=== PATIENT | male | born 1965 | race Caucasian/White ===

== ENCOUNTER 2017-12-26 05:51 | Outpatient (CLI) | payer BC ==
[~2017-12-26] VITALS: Ht 188 cm; Wt 133.8 kg
[~2017-12-26 05:51] MED LIST: HYDR2TAB6 PO; METF500T8 PO; ONDA4TAB8 SL; PRD20T PO; PROP40TA5 PO
[2017-12-26] MEDS ORDERED: GLIM4TAB PO (12:52)
[2017-12-26] MEDS ORDERED: PROP60TA17 PO (12:52)
[2017-12-26] MEDS ORDERED: DAPA10TA PO (12:52)
[2017-12-26] MEDS ORDERED: DULA0.75 SQ (12:52)
[2017-12-26] MEDS ORDERED: ATOR10TA66 PO (12:52)
== END 2017-12-26 12:53 ==
LOC: PREOP 05:51
PROVIDERS: ATTEND Surgery
DX: Z01.818 Encounter for other preprocedural examination (principal); Z12.11 Encounter for screening for malignant neoplasm of colon

== ENCOUNTER 2018-01-02 09:03 | Day surgery (SDC) | payer BC ==
[~2018-01-02] VITALS: Ht 188 cm; Wt 133.8 kg
[~2018-01-02 09:03] MED LIST changes: +ATOR10TA66 PO; +DAPA10TA PO; +DULA0.75 SQ; +GLIM4TAB PO; +PROP60TA17 PO
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
[2018-01-02] MEDS ORDERED: NS IV 500 ML 500 ML IV ONE (10:00)
[2018-01-02] MEDS ORDERED: NS IV 500 ML 500 ML ONE (10:02)
[2018-01-02 10:15] VITALS: BP 115/102
--- NOTE | 2018-01-02 10:21 | History & Physicial ---
History of Present Illness History of Present Illness Reason for visit/HPI to undergo screening colonoscopy. Date of Admission 01/02/18 Date Seen by Provider: Jan 02, 2018 Time Seen by Provider: 10:19 I consulted on this patient on 01/02/18 10:18 Attending Physician Gerald Melendez MD Admitting Physician Kendy Akins DO Consult Allergies and Home Medications Allergies Coded Allergies: hydrocodone (Unverified Allergy, Unknown, NAUSEA, 05/02/15) Home Medications Atorvastatin Calcium 10 Mg Tablet, 10 MG PO HS, (Reported) Dapagliflozin Propanediol 10 Mg Tablet, 10 MG PO HS, (Reported) Dulaglutide 0.75 Mg/0.5 Ml Pen.injctr, 0.75 MG SQ WEEK, (Reported) Glimepiride 4 Mg Tablet, 4 MG PO HS, (Reported) Propranolol HCl 60 Mg Tablet, 60 MG PO HS, (Reported) Patient Home Medication List Home Medication List Reviewed: Yes Past Tzevgki-Cpacrz-Fvpcjk Hx Patient Social History Marrital Status: Employed/Student: employed Alcohol Beverage of Choice: Beer Former Smoker, Quit: Dec 26, 1994 Type Used: Smokeless Tobacco Recent Foreign Travel: No Contact w/other who traveled: No Recent Hopitalizations: No Immunizations Up To Date Tetanus Booster (TDap): Unknown Date of Influenza Vaccine: Jun 27, 2017 Seasonal Allergies Seasonal Allergies: No Surgeries Yes Orthopedic Respiratory No Cardiovascular Yes High Cholesterol Neurological No Reproductive System Hx Reproductive Disorders: No Gastrointestinal Yes Gastroesophageal Reflux Musculoskeletal No Endocrine History of Endocrine Disorders: Yes Endocrine Disorders: Diabetes, Non-Insulin dep Integumentary History of Skin or Integumenta: No Blood Transfusions Adverse Reaction to a Blood Tr: No Constitutional: no symptoms reported EENTM: no symptoms reported Respiratory: no symptoms reported Cardiovascular: no symptoms reported Gastrointestinal: no symptoms reported Genitourinary: no symptoms reported Musculoskeletal: no symptoms reported Skin: no symptoms reported Psychiatric/Neurological: No Symptoms Reported Physical Exam Vital Signs Capillary Refill : General Appearance: No Apparent Distress Neck: Normal Inspection Respiratory: Lungs Clear Gastrointestinal: Non Tender, Soft Rectal: Deferred Neurologic/Psychiatric: Alert, Oriented x3 Skin: Warm/Dry Assessment/Plan Assessment and Plan gentleman here, to undergo screening colonoscopy. Discussed in detail Problems: Admission Diagnosis Admission Status: Other (Outpt Proc) GERALD MELENDEZ MD Jan 02, 2018 10:21 am
--- NOTE | 2018-01-02 10:21 | Conscious Sedation/ASA ---
Conscious Sedation Pre-Proced Time Reviewed: 10:21 ASA Class: 2 Airway Mallampati Classification: ([place] ira appropriate class) I. II. III, IV Lungs Heart ASA score ASA 1: a normal healthy patient ASA 2: a patient with a mild systemic disease (mid diabetes, controlled hypertension, obesity ASA 3: a patient with a severe systemic disease that limits activity (angina , COPD, prior Myocardial infarction) ASA 4: a patient with an incapacitating disease that is a constant threat to life (CHF, renal failure) ASA 5: a moribund patient not expected to survive 24 hrs. (ruptured aneurysm) ASA 6: a declared brain patient whose organs are being harvested. For emergent operations, add the letter E after the classification Grade 1 Sedation Plan: Discussed options with patient/fam Note The patient is an appropriate candidate to undergo the planned procedure, sedation, and anesthesia. The patient immediately re-assessed prior to indication. GERALD LEAL MD Jan 02, 2018 10:21 am
[2018-01-02] MEDS ORDERED: fentaNYL INJECTION 100 MCG/2 ML AMP ONE ×2 (11:35→11:36)
[2018-01-02] MEDS ORDERED: MIDAZOLAM 2 MG/2 ML (VERSED) VIAL ONE ×3 (11:36)
[2018-01-02] MEDS: fentaNYL INJECTION 100 MCG/2 ML AMP IVP PRN ×3 (11:41→11:52)
[2018-01-02] MEDS: MIDAZOLAM 2 MG/2 ML (VERSED) VIAL IVP PRN ×3 (11:42→11:48)
--- NOTE | 2018-01-02 12:09 | Endo Procedure Record ---
Endo Procedure Report Date of Procedure Last Colonoscopy: No Jan 02, 2018 Surgeon (s) GERALD LEAL MD Post Procedure/Op Diagnosis Very few sigmoid diverticulae Procedure Performed Colonoscopy to cecum Description of Procedure Anesthesia Type: Conscious Sedation Specimen(s) collected/removed Indication for the procedure: This gentleman came in for a screening colonoscopy. He reported a family history of polyps. Informed consent was obtained after reviewing the procedure in detail Description of the procedure: He was placed in left lateral decubitus position and his vital signs were monitored. Conscious sedation was achieved using Versed and fentanyl. Digital rectal examination was unremarkable. The prostate gland appeared to be smooth. The flexible colonoscope was then introduced into the rectum and advanced all the way up to the cecum The quality of bowel preparation was excellent. The scope was then withdrawn slowly and the mucosa examined in a systematic fashion. Finding: Very few sigmoid diverticula. He tolerated the procedure well and was taken back to the nursing area in a stable condition. Impression: Screening colonoscopy. No polyps. Positive family history. Recommend repeating in 5 years Description of the Procedure none Copies To: JANETTE GALEANO XAVIER M MD Jan 02, 2018 12:09 pm
--- NOTE | 2018-01-02 12:11 | Discharge Inst-Simple/Standard ---
Discharge Inst-Standard Discharge Medications New, Converted or Re-Newed RX: Other Patient Instructions/Follow Up Plan of Care/Instructions/FU: Repeat colonoscopy in 5 years Activity as Tolerated: Yes Discharge Diet: ADA Diet GERALD LEAL MD Jan 02, 2018 12:10 pm
[2018-01-02 12:40] VITALS: BP 96/56
[2018-01-02 13:00] VITALS: BP 107/89
[2018-01-02 13:02] VITALS: BP 107/89
== END 2018-01-02 13:03 | disposition home or self-care (01) ==
LOC: ENDO 09:03
PROVIDERS: ATTEND Surgery
DX: Z12.11 Encounter for screening for malignant neoplasm of colon (principal); K57.30 Diverticulosis of large intestine without perforation or abscess without bleeding; Z83.71 Family history of colonic polyps; E78.00 Pure hypercholesterolemia, unspecified; E11.9 Type 2 diabetes mellitus without complications; K21.9 Gastro-esophageal reflux disease without esophagitis; Z79.84 Long term (current) use of oral hypoglycemic drugs; Z79.899 Other long term (current) drug therapy
CPT/HCPCS: 82962

== ENCOUNTER → 2018-06-19 | Outpatient (CLI) | payer BC ==
[~2018-06-19] MED LIST changes: +ACET325T49 PO; +APIX5TAB PO; +CATHETER FLUSH 10 ML SYR IV PRN; +FAMO20TA5 PO; +IOHEXOL 350 MG/ML 150 ML (OMNIPAQUE 350) VIAL IV ONE; +METF-399 PO; +NS 250 ML (IVPB) BAG IV ONE
[2018-06-19 17:23] LABS: ALANINE AMINOTRANSFERASE 32 U/L (0-55); ALBUMIN 4.6 GM/DL (3.2-4.5); ALKALINE PHOSPHATASE 69 U/L (40-136); BILIRUBIN,TOTAL 0.6 MG/DL (0.1-1.0); BUN/CREATININE RATIO 13; CALCIUM 10.1 MG/DL (8.5-10.1); CARBON DIOXIDE 25 MMOL/L (21-32); CHLORIDE 105 MMOL/L (98-107); CREATINE KINASE 108 U/L (30-200); CREATININE SERUM 1.07 MG/DL (0.60-1.30); GFR ESTIMATED > 60; GLUCOSE 183 MG/DL (70-105); POTASSIUM 4.4 MMOL/L (3.6-5.0); SODIUM 140 MMOL/L (135-145); TOTAL PROTEIN 8.1 GM/DL (6.4-8.2)
--- NOTE | 2018-06-19 18:11 | Diagnostic Imaging Report ---
PROCEDURE: CT angiography of the chest with contrast. TECHNIQUE: Multiple contiguous axial images were obtained through the chest after uneventful bolus administration of intravenous contrast. 2D reconstructed CTA MIP acquisitions were also performed. INDICATION: Shortness of air on exertion as well as anterior chest pressure. COMPARISON: Comparison is made with prior CT chest from 05/02/2015. FINDINGS: Evaluation of the pulmonary arterial system does show numerous filling defects within bilateral central, lobar and segmental pulmonary arterial branches extending into upper and bilateral lower lobes. No saddle embolus is identified. The thoracic aorta is normal caliber. No dissection is seen. No pericardial or pleural fluid is identified. Parenchymal evaluation does show minimal patchy airspace infiltrate in the right upper lobe. Otherwise, the lungs are clear. Upper abdomen is unremarkable. IMPRESSION: Findings consistent with moderate bilateral pulmonary emboli. The results were called to Dr. Akins prior to this dictation. Dictated by: Dictated on workstation # [id number]
== END ==
LOC: RAD 16:48
PROVIDERS: ATTEND Nurse Practitioner Family
DX: R07.89 Other chest pain (principal); E11.9 Type 2 diabetes mellitus without complications; R06.02 Shortness of breath
CPT/HCPCS: 36415; 71275; 80053; 82550; 83036; 84484; 93005

== ENCOUNTER 2018-06-29 18:24 | Observation (INO) | payer BC ==
[~2018-06-29] VITALS: Ht 188 cm; Wt 129.7 kg
[2018-06-29] VITALS (7 sets, daily range): BP systolic 112–131; BP diastolic 68–87
[~2018-06-29 18:24] MED LIST changes: -CATHETER FLUSH 10 ML SYR IV PRN; -IOHEXOL 350 MG/ML 150 ML (OMNIPAQUE 350) VIAL IV ONE; -NS 250 ML (IVPB) BAG IV ONE
[2018-06-29 18:43] LABS: BASOPHILS # (AUTO) 0.1 10^3/uL (0.0-0.1); BASOPHILS % (AUTO) 1 % (0-10); EOSINOPHILS # (AUTO) 0.2 10^3/uL (0.0-0.3); EOSINOPHILS % (AUTO) 2 % (0-10); HEMATOCRIT 44 % (40-54); HEMOGLOBIN 16.2 G/DL (13.3-17.7); LYMPHOCYTES # (AUTO) 3.3 X 10^3 (1.0-4.0); LYMPHOCYTES % (AUTO) 39 % (12-44); MEAN CORPUSCULAR HEMOGLOBIN 33 PG (25-34); MEAN CORPUSCULAR HGB CONC 37 G/DL (32-36); MEAN CORPUSCULAR VOLUME 88 FL (80-99); MEAN PLATELET VOLUME 10.5 FL (7.4-10.4); MONOCYTES # (AUTO) 0.9 X 10^3 (0.0-1.0); MONOCYTES % (AUTO) 11 % (0-12); NEUTROPHILS # (AUTO) 4.1 X 10^3 (1.8-7.8); NEUTROPHILS % (AUTO) 48 % (42-75); PLATELET COUNT 257 10^3/uL (130-400); RED BLOOD COUNT 4.99 10^6/uL (4.35-5.85); RED CELL DISTRIBUTION WIDTH 12.2 % (10.0-14.5); WHITE BLOOD COUNT 8.6 10^3/uL (4.3-11.0)
[2018-06-29] MEDS ORDERED: LORazepam INJ 2 MG/ML (ATIVAN) VIAL IVP ONE (18:45)
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
[2018-06-29 18:53] LABS: INR 1.1 (0.8-1.4); PROTHROMBIN TIME PATIENT 13.8 SEC (12.2-14.7)
[2018-06-29 19:00] LABS: ALANINE AMINOTRANSFERASE 29 U/L (0-55); ALBUMIN 4.7 GM/DL (3.2-4.5); ALKALINE PHOSPHATASE 57 U/L (40-136); BILIRUBIN,TOTAL 0.5 MG/DL (0.1-1.0); BUN/CREATININE RATIO 13; CALCIUM 10.4 MG/DL (8.5-10.1); CARBON DIOXIDE 21 MMOL/L (21-32); CHLORIDE 104 MMOL/L (98-107); GFR ESTIMATED > 60; GLUCOSE 112 MG/DL (70-105); MAGNESIUM 2.4 MG/DL (1.8-2.4); POTASSIUM 3.6 MMOL/L (3.6-5.0); SODIUM 137 MMOL/L (135-145); TOTAL PROTEIN 8.4 GM/DL (6.4-8.2)
[2018-06-29 19:06] LABS: MYOGLOBIN SERUM 35.1 NG/ML (10.0-92.0)
[2018-06-29] MEDS ORDERED: ASPIRIN 81 MG CHEW (CHILDREN'S ASA) PO ONE (19:45)
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
--- NOTE | 2018-06-29 20:06 | Diagnostic Imaging Report ---
EXAMINATION: Chest radiograph, portable AP view. DATE: June 29, 2018 at 1858 hours. INDICATION: 52-year-old male, chest pain. COMPARISON: June 06, 2016. FINDINGS: Stable overall appearance of the cardiomediastinal silhouette. There is a convexity to the right of midline at the lower aspect of the trachea which is radiographically unchanged. Correlating with prior CT chest of June 19, 2018, this most likely reflects a prominent azygous vein. There is no identified pneumothorax. There is no large pleural effusion. There is no identified focal airspace consolidation. IMPRESSION: 1. No radiographically apparent acute cardiopulmonary abnormality. 2. Prominent convexity to the right of midline at the level of the lower trachea likely reflects a prominent azygous vein correlating with recent prior CT. Dictated by: Dictated on workstation # [id number]
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
[2018-06-30] VITALS (10 sets, daily range): BP systolic 104–128; BP diastolic 71–86
[2018-06-30 06:11] LABS: CHOLESTEROL 122 MG/DL (< 200); HDL CHOLESTEROL 33 MG/DL (40-60); TRIGLYCERIDES 145 MG/DL (<150); VLDL CHOLESTEROL 29 MG/DL (5-40)
[2018-06-30] MEDS: CATHETER FLUSH 10 ML SYR IV PRN ×2 (07:29→08:54)
[2018-06-30] MEDS ORDERED: REGADENOSON 0.4 MG/5 ML SYR (LEXISCAN) IV ONE ×2 (08:04→09:00)
[2018-06-30] MEDS ORDERED: APIXABAN 5 MG (ELIQUIS) TABLET PO SCH (09:00)
[2018-06-30] MEDS ORDERED: ASPIRIN E.C. 81 MG (ECOTRIN) TAB PO SCH (09:00)
--- NOTE | 2018-06-30 09:04 | Consultation-Cardiology ---
HPI-Cardiology Cardiology Consultation: Date of Consultation 06/30/18 Date of Admission Attending Physician Kendy Akins DO Admitting Physician Kendy Akins DO Consulting Physician Bennie ANDRES MD HPI: Time Seen by a Provider: 09:04 Chief Complaint: Chest pain, shortness of breath This is a 52-year-old gentleman who had bilateral pulmonary emboli around 10 days ago. At that point in time he had chest pain. Patient has on Eliquis and has been compliant. He presents again with episode of chest heaviness, shortness of breath. Patient also has history of diabetes and family history of premature CAD. Patient denies any palpitations, syncope or near syncope. Chest discomfort is atypical in nature. Review of Systems-Cardiology Review of Systems Constitutional: As described under HPI; No As described under HPI, No no symptoms reported, No chills, No fever, No lightheadedness Eyes: No As described under HPI, No no symptoms reported, No blindness, No blurred vision, No contact lenses, No drainage, No decreased acuity, No foreign body sensation, No pain, No vision change Ears/Nose/Throat: No As described under HPI, No no symptoms reported, No chronic hearing loss, No ear discharge, No ear pain, No nasal drainage, No ulcerations Respiratory: No no symptoms reported; As described under HPI; No As described under HPI, No cough, No orthopnea; shortness of breath; No SOB with excertion Cardiovascular: No no symptoms reported; As described under HPI; No As described under HPI; chest pain; No edema, No irregular heart rate, No lightheadedness, No palpitations Gastrointestinal: No no symptoms reported, No As described under HPI, No abdomen distended, No abdominal pain, No blood streaked bowels, No constipation , No diarrhea, No nausea, No vomiting, No stool coloration changes Genitourinary: No As described under HPI, No burning, No dysuria, No discharge , No frequency, No flank pain, No hematuria, No urgency Skin: No rash, No skin related problems, No ulcerations Psychiatric/Neurological: No anxiety, No depression, No seizure, No focal weakness, No syncope Hematologic: No bleeding abnormalities JCN-Ibvkld-Rcesks Hx Patient Social History Alcohol Use: Denies Use Recreational Drug Use: No Smoking Status: Former Smoker Type Used: Cigarettes 2nd Hand Smoke Exposure: No Recent Foreign Travel: No Recent Infectious Disease Expo: No Hospitalization with Isolation: Denies Physical Abuse Screen: No Sexual Abuse: No Immunizations Up To Date Tetanus Booster (TDap): Unknown Date of Influenza Vaccine: Jun 29, 2018 Past Medical History PMH As described under Assessment. Family Medical History Family History: Diabetes mellitus 19 FATHER G8 SISTER Allergies and Home Medications Allergies Coded Allergies: hydrocodone (Verified Allergy, Unknown, NAUSEA, 01/02/18) Home Medications Acetaminophen 325 Mg Tablet, 650 MG PO Q6H PRN for PAIN-MILD, (Reported) Apixaban 5 Mg Tablet, PO UD, (Reported) TAKE 2 TABS TWICE DAILY THROUGH Tuesday06-30-18 THEN START 1 TAB BID ON Tuesday07-01-18 (DID NOT TAKE TUESDAY NIGHT DOSE) Cetirizine HCl 10 Mg Tablet, 10 MG PO HS, (Reported) Dapagliflozin Propanediol 10 Mg Tablet, 10 MG PO DAILY, (Reported) Famotidine 20 Mg Tablet, 20 MG PO BID, (Reported) Glimepiride 4 Mg Tablet, 4 MG PO BID, (Reported) Metformin HCl 1,000 Mg Tablet, 1,000 MG PO BID, (Reported) Propranolol HCl 60 Mg Tablet, 60 MG PO DAILY, (Reported) Triamcinolone Acet 15 Gm Oint, TOP BID, (Reported) Patient Home Medication List Home Medication List Reviewed: Yes Physical Exam-Cardiology Physical Exam Vital Signs/I&O 07/01/18 00:00 Intake Total 1125 ml Balance 1125 ml Capillary Refill : Less Than 3 Seconds Constitutional: appears stated age, AAO x 3; No apparent distress; well- developed, well-nourished HEENT: PERRL; No normal ENT inspection, No TMs normal, No pharynx normal, No scleral icterus (R), No scleral icterus (L), No pale conjunctivae (R), No pale conjunctivae (L), No photophobia, No TM abnormal (R), No TM abnormal (L), No pharyngeal erythema, No tonsillar exudate, No other, No discharge, No EOMI; hearing is well preserved; No hard of hearing; oral hygience is good; No ulceration, No xanthelasmas are seen Neck: No carotid bruit; carotid pulses are 2 + bilaterally Respiratory: No accessory muscle use, No respiratory distress, No chest tender , No chest expansion is symmetric; chest is bilaterally symmetric; No lungs clear to percussion; lungs clear to auscultation; No crackles, No rhonchi, No rales, No stridor, No wheezing, No pleural rub, No other Cardiovascular: regular rate-rhythm; No irregularly irregular, No extra beats, No parasternal heave is noted, No JVD, No edema, No bradycardia, No tachycardia , No point of maximal impulse, No cardiac thrills are palpable; S1 and S2; No gallop/S3, No gallop/S4, No diastolic murmur, No systolic murmur, No friction rub, No click, No other Gastrointestinal: No tender, No soft, No round, No distended, No pulsatile mass , No organomegaly, No guarding, No rebound, No tenderness, No hernia, No mass, No audible bowel sounds, No abnormal bowel sounds, No abdominal bruits, No spleenomegaly, No other Rectal: deferred Extremities: No normal range of motion, No non-tender, No normal inspection, No pedal edema, No calf tenderness, No normal capillary refill, No pelvis stable , No calf tenderness, No inflammation, No pedal edema, No slow capillary refill , No swelling, No other, No abrasion, No clubbing, No cyanosis, No ecchymosis, No laceration, No no lower extremity edema bilateral, No significant edema, No tenderness, No wound Neurologic/Psychiatric: no motor/sensory deficits, alert, normal mood/affect, oriented x 3, power is 5/5 both on sides Skin: No normal color, No warm/dry, No cyanosis, No cool, No diaphoresis, No damp, No ecchymosis, No jaundice, No mottled, No pallor, No rash, No tattoos/ piercings, No ulcerations, No rash on exposed areas, No ulcerations on exposed areas, No other Data Review Labs ECG Impression ECG Initial ECG Rhythm: Normal Sinus Initial ECG Impression: Nonspecific Changes A/P-Cardiology Assessment/Admission Diagnosis Chest pain, shortness of breath, Recent pulmonary embolism, Diabetes Plan Continue Eliquis therapy for pulmonary embolism. Chest pain, shortness of breath, will request echocardiogram and nuclear stress test to rule out CAD. Patient has significant risk factors for CAD including diabetes and family history of premature CAD. Diabetes: Continue current medical therapy. Thank you for your consultation. Please call me if you have any questions. Dudley Andres MD, FACP, FACC, FSCAI, FHRS, CCDS Interventional Cardiology Cardiac Electrophysiology Vascular Medicine and Endovascular Interventions Clinical Quality Measures AMI/AHF: ASA po Prior to arrival: No DVT/VTE Risk/Contraindication: Risk Factor Score Per Nursin RFS Level Per Nursing on Admit: 4+=Very High Bennie ANDRES MD Jun 30, 2018 09:04
[2018-06-30] MEDS ORDERED: ATOR10TA66 PO (10:06)
[2018-06-30] MEDS ORDERED: APIX5TAB PO (10:06)
[2018-06-30] MEDS ORDERED: DAPA10TA PO (10:06)
[2018-06-30] MEDS ORDERED: FAMO20TA3 PO (10:06)
[2018-06-30] MEDS ORDERED: TR1O15 TOP (10:06)
[2018-06-30] MEDS ORDERED: ACET325T38 PO (10:30)
[2018-06-30] MEDS ORDERED: CETI10TA20 PO (10:30)
--- NOTE | 2018-06-30 12:25 | Cardiology Stress Test Report ---
Stress Test Report Type of NM Stress Test: Test Type: LEXISCAN 0.4MG/5ML Date of Procedure/Referring: Date of Procedure: Jun 30, 2018 PCP Kendy Akins DO Admitting Physician Kendy Akins DO Indications: Chest pain Baseline Heart Rate: 63 Baseline Blood Pressure: Blood Pressure Systolic: 128 Blood Pressure Diastolic: 85 Baseline EKG: Baseline EKG: sinus rhythm Summary & Conclusion: Summary: The patient was brought to the stress lab after informed consent was taken. Stress test was performed according to the Lexiscan protocol. 0.4 mg of IV Lexiscan was given. Low-grade exercise was performed. Baseline EKG showed sinus rhythm at 63 BPM. Initial blood pressure was 151/95 mmHg. Maximum heart rate was 96 bpm and blood pressure 119/90 mmHg. Patient did not have any chest pain, arrhythmias or ST segment changes during the stress test. 9.96 mCi of Myoview were given for rest imaging and 29.1 mCi of Myoview given for stress imaging. Transient ischemic dilatation score 1.11, EF 57 percent. Normal wall motion. Normal myocardial perfusion imaging during rest and stress. Conclusion: Pharmacological stress test was negative for ischemia. Normal LV function with no wall motion abnormalities. Normal myocardial perfusion imaging during rest and stress. Bennie JOSE MD Jun 30, 2018 12:25 pm
== END 2018-06-30 17:00 | disposition home or self-care (01) ==
LOC: EDUNIT# 18:24 → ER 18:28 → 4TH 20:27
PROVIDERS: ADMIT Family Medicine; ATTEND Family Medicine
DX: R07.9 Chest pain, unspecified (principal); E11.9 Type 2 diabetes mellitus without complications; R06.02 Shortness of breath; F41.9 Anxiety disorder, unspecified; Z86.711 Personal history of pulmonary embolism; Z82.49 Family history of ischemic heart disease and other diseases of the circulatory system; Z87.891 Personal history of nicotine dependence; Z79.899 Other long term (current) drug therapy; Z79.84 Long term (current) use of oral hypoglycemic drugs
CPT/HCPCS: 36415; 71045; 78452; 80053; 80061; 82962; 83735; 83874; 83880; 84484; 85025; 85610; 85730; 93005; 93017; 93041; 93306; G0378

== ENCOUNTER → 2019-11-26 | Outpatient (CLI) | payer BC ==
[~2019-11-26] MED LIST changes: +ACET325T38 PO; +CETI10TA21 PO; +FAMO20TA3 PO; -GLIM4TAB PO; +GLIM4TAB5 PO; +METF500T19 PO; -METF500T8 PO; +TR1O15 TOP
--- NOTE | 2019-11-26 11:46 | Diagnostic Imaging Report ---
INDICATION: Left shoulder pain. FINDINGS: Three views of the left shoulder show no fracture or dislocation. Joint spaces are well-maintained. IMPRESSION: Negative left shoulder. Dictated by: Dictated on workstation # [id number]
--- NOTE | 2019-11-26 11:50 | Diagnostic Imaging Report ---
INDICATION: Neck pain. EXAMINATION: Cervical spine. FINDINGS: AP and lateral views of the cervical spine show normal vertebral body height and alignment. The intervertebral disc spaces are well-maintained. There is no prevertebral soft tissue swelling. There are no fractures seen. IMPRESSION: Unremarkable cervical spine. Dictated by: Dictated on workstation # [id number]
--- NOTE | 2019-11-26 12:00 | Diagnostic Imaging Report ---
Left foot at 1132 hours. INDICATION: Foot pain. 3 views were obtained. There are no prior studies available for comparison. FINDINGS: Reportedly, there is clinical concern regarding an injury to the 3rd and 4th metatarsals. There is no fracture or acute bony abnormality appreciated. The Lisfranc joint seems well maintained. There is moderate degenerative disease of the phalanges. A prominent calcaneal spur is also seen. The lateral view does show soft tissue edema along the dorsum of the bases of the metatarsals. IMPRESSION: 1. There is soft tissue edema over the dorsum of the forefoot but there is no evidence for a fracture. 2. If clinical concern regarding an underlying abnormality persists and further imaging is desired, then CT would be recommended for further study. Dictated by: Dictated on workstation # [id number]
--- NOTE | 2019-11-26 13:51 | Diagnostic Imaging Report ---
INDICATION: Left foot pain. COMPARISON: 06/20/2018. TECHNIQUE: Duplex, mcdonough-scale and color-flow imaging of the left lower extremity venous system was performed. FINDINGS: The common femoral vein, superficial femoral vein, profunda femoris, and popliteal veins are normal. These vessels show normal compressibility, color flow, and Doppler augmentation. The deep calf veins, although not very well seen, demonstrate no distinct intraluminal thrombus. There is focal complex superficial fluid collection involving the dorsum of the foot that measures 3.1 x 0.7 x 2.6 cm. Internal debris and/or septations are noted. Color flow images show no evidence of internal vascularity. IMPRESSION: 1. No evidence of DVT of the left lower extremity. 2. Complex fluid collection involving the dorsum of the foot. Findings could be on the basis of focal abscess or hematoma. Seroma is also a consideration. Dictated by: Dictated on workstation # [id number]
== END ==
LOC: RAD 10:17
PROVIDERS: ATTEND Nurse Practitioner Family
DX: M79.672 Pain in left foot (principal); M54.12 Radiculopathy, cervical region; M79.89 Other specified soft tissue disorders; M25.512 Pain in left shoulder
CPT/HCPCS: 72040; 73030; 73630

== ENCOUNTER → 2020-06-23 | Outpatient (CLI) | payer BC ==
[~2020-06-23] MED LIST changes: +ATOR10TA PO; -CETI10TA21 PO; +CETI10TA49 PO; +EMPA10TA PO; +METF-865 PO; -METF500T19 PO; +PREG75CA PO; +RIVA10TA PO
--- NOTE | 2020-06-23 17:43 | Diagnostic Imaging Report ---
PROCEDURE: CT abdomen and pelvis without contrast. TECHNIQUE: Multiple contiguous axial images were obtained through the abdomen and pelvis without the use of intravenous contrast. Auto Exposure Controls were utilized during the CT exam to meet ALARA standards for radiation dose reduction. INDICATION: Gross hematuria. FINDINGS: Lung bases are clear. Liver appears normal. Gallbladder is decompressed. There is large amount of food residue in the stomach. Spleen appears normal. Pancreas is unremarkable. Adrenals are normal. There is a 9 mm calculus in the distal left ureter causing mild hydronephrosis of left kidney. The appendix is unremarkable. Urinary bladder appears normal. Prostate is not enlarged. Large and small intestines are unremarkable. IMPRESSION: Distal left ureteral calculus causing mild obstruction. Dictated by: Dictated on workstation # [id number]
== END ==
LOC: RAD 15:44
PROVIDERS: ATTEND Urology
DX: N20.1 Calculus of ureter (principal)
CPT/HCPCS: 74176

== ENCOUNTER 2020-06-26 05:43 | Outpatient (CLI) | payer BC ==
[~2020-06-26] VITALS: Ht 188 cm; Wt 134.1 kg
[~2020-06-26 05:43] MED LIST changes: -ATOR10TA PO; -EMPA10TA PO; -PREG75CA PO; -RIVA10TA PO
[2020-06-26] MEDS ORDERED: EMPA10TA PO (14:36)
[2020-06-26] MEDS ORDERED: PREG75CA PO (14:36)
[2020-06-26] MEDS ORDERED: ATOR10TA PO (14:36)
[2020-06-26] MEDS ORDERED: RIVA10TA PO (14:36)
== END 2020-06-26 14:41 | disposition home or self-care (01) ==
LOC: PREOP 05:43
PROVIDERS: ATTEND Urology
DX: Z01.818 Encounter for other preprocedural examination (principal)

== ENCOUNTER → 2020-07-01 | Outpatient (CLI) | payer BC ==
[~2020-07-01] MED LIST changes: +ATOR10TA PO; +EMPA10TA PO; +PHEN-640 PO; +PREG75CA PO; +RIVA10TA PO; +SULF1TAB35 PO; +TMSL.4C PO; +TRM50T PO
== END ==
LOC: LABNPT 06:19
PROVIDERS: ATTEND Urology
DX: Z01.812 Encounter for preprocedural laboratory examination (principal); Z20.828 Contact with and (suspected) exposure to other viral communicable diseases; N20.1 Calculus of ureter
CPT/HCPCS: 87635

== ENCOUNTER 2020-07-02 06:03 | Day surgery (SDC) | payer BC ==
[2020-07-02] VITALS (10 sets, daily range): BP systolic 103–136; BP diastolic 61–92
[~2020-07-02] VITALS: Ht 188 cm; Wt 134.1 kg
[~2020-07-02 06:03] MED LIST changes: -PHEN-640 PO; -SULF1TAB35 PO; -TMSL.4C PO; -TRM50T PO
[2020-07-02] MEDS ORDERED: cefTRIAXone FOR IV USE 1,000 MG in WATER (STERILE) FOR INJECTION 10 ML IV ONE (06:30)
[2020-07-02] MEDS ORDERED: ONDANSETRON 4 MG/2 ML (SDV) Z0FRAN ONE (06:40)
[2020-07-02] MEDS ORDERED: MIDAZOLAM 2 MG/2 ML (VERSED) VIAL ONE (06:40)
[2020-07-02] MEDS ORDERED: fentaNYL INJECTION 100 MCG/2 ML AMP ONE (06:40)
[2020-07-02] MEDS ORDERED: LIDOCAINE PF 2% 5 ML (XYLOCAINE) VIAL ONE (06:40)
[2020-07-02] MEDS ORDERED: proPOfol 200 MG/20 ML (DIPRIVAN) VIAL IV ONE (06:40)
[2020-07-02] MEDS ORDERED: CATHETER FLUSH 10 ML SYR IV PRN (06:45)
[2020-07-02] MEDS ORDERED: SEVOFLURANE (ULTANE) 15 ML INHAL SOLN ONE ×4 (06:46→08:59)
[2020-07-02] MEDS ORDERED: ROCURONIUM 10 MG/ML 5 ML SYRINGE IV ONE (07:02)
[2020-07-02] MEDS ORDERED: GLYCOPYRROLATE 0.2 MG/ML (ROBINUL) 2 ML VIAL ONE (07:02)
[2020-07-02] MEDS ORDERED: NEOSTIGMINE 3 MG/3 ML VIAL ONE (07:02)
--- NOTE | 2020-07-02 07:02 | Progress Note-Pre Operative ---
Pre-Operative Progress Note H&P Reviewed The H&P was reviewed, patient examined and no changes noted. Date Seen by Provider: Jul 02, 2020 Time Seen by Provider: 07:02 Date H&P Reviewed: Jul 02, 2020 Time H&P Reviewed: 07:02 Pre-Operative Diagnosis: LT DISTAL URETERAL STONE NEERU ORTIZ MD Jul 02, 2020 07:02
[2020-07-02] MEDS: LACTATED RINGERS 1,000 ML IV PRN ×2 (07:04→08:49)
--- NOTE | 2020-07-02 07:07 | Progress Note-Post Operative ---
Post-Operative Progess Note Surgeon (s)/Rework Machine Operator (s) Surgeon NEERU ORTIZ MD Rework Machine Operator: NONE Pre-Operative Diagnosis LT DISTAL URETERAL STONE Post-Operative Diagnosis SAME Procedure & Operative Findings Date of Procedure 07/02/20 Procedure Performed/Findings CYSTOSCOPY, LT URETEROSCOPY WITH STONE LITHOTRIPSY AND LT ESWL Anesthesia Type GENERAL Estimated Blood Loss Estimated blood loss (mL): NONE Specimens/Packing Specimens Removed NONE Packing: NONE NEERU ORTIZ MD Jul 02, 2020 07:07
--- NOTE | 2020-07-02 07:10 | Discharge Inst-Urology ---
Discharge Inst-Urology Reconcile Patient Problems Problems Reviewed?: Yes Final Diagnosis LT DISTAL URETERAL STONE Patient Instructions/Follow Up Plan/Assessment/Instructions Please make appointment to been seen in office Wednesday 07/11, KUB prior to it. In 72 hours, if no bleeding may resume Xarelto KUB on way home Post ESWL instructions Increase oral fluids for 48 hours and then as needed. Diet and Activity as tolerated. If questions or concerns contact your physician Or seek help at emergency department. NEERU ORTIZ MD Jul 02, 2020 07:10
[2020-07-02] MEDS ORDERED: KETOROLAC 30 MG/ML VIAL ONE (07:35)
[2020-07-02] MEDS ORDERED: FUROSEMIDE 40 MG/4 ML INJ (LASIX) ONE (07:35)
--- NOTE | 2020-07-02 08:00 | Diagnostic Imaging Report ---
INDICATION: Left ureteral stone. Flank pain. FINDINGS: KUB. FINDINGS: There is a calcification region of distal left ureter measuring 13 x 7 mm. IMPRESSION: Findings are consistent with rather large distal left ureteral calculus. Dictated by: Dictated on workstation # [id number]
[2020-07-02] MEDS ORDERED: HYDROmorphone 2 MG/ML VIAL (DILAUDID) IV ONE (09:30)
[2020-07-02] MEDS ORDERED: morphine INJ 10 MG/ML 1ML (SYR OR VIAL) IVP ONE (09:30)
[2020-07-02] MEDS ORDERED: MEPERIDINE (DEMEROL) INJ 50 MG/ML IVP ONE (09:30)
[2020-07-02] MEDS ORDERED: ONDANSETRON 4 MG/2 ML (SDV) Z0FRAN IVP PRN (09:30)
[2020-07-02] MEDS ORDERED: PHENAZOPYRIDINE 100 MG (PYRIDIUM) TABLET ONE (10:12)
[2020-07-02] MEDS ORDERED: PHENAZOPYRIDINE 100 MG (PYRIDIUM) TABLET PO ONE (10:15)
[2020-07-02] MEDS ORDERED: TRM50T PO (10:29)
[2020-07-02] MEDS ORDERED: TMSL.4C PO (10:29)
[2020-07-02] MEDS ORDERED: SULF1TAB35 PO (10:29)
[2020-07-02] MEDS ORDERED: PHEN-640 PO (10:29)
--- NOTE | 2020-07-02 10:34 | Anesthesia-General Post-Op ---
General Patient Condition Mental Status/LOC: Same as Preop Cardiovascular: Satisfactory Nausea/Vomiting: Absent Respiratory: Satisfactory Pain: Controlled Complications: Absent Post Op Complications Complications None Follow Up Care/Instructions Patient Instructions None needed. Anesthesia/Patient Condition Patient Condition Patient is doing well, no complaints, stable vital signs, no apparent adverse anesthesia problems. No complications reported per nursing. VIKTORIYA BARAHONA CRNA Jul 02, 2020 10:34
--- NOTE | 2020-07-02 11:32 | Diagnostic Imaging Report ---
INDICATION: Status post lithotripsy. TIME OF EXAM: 11:05 AM Correlation is made with prior exam from earlier today. FINDINGS: A large calculus located in the left pelvis on recent study is not as well-seen on this current exam. There is a small calcific density in the left pelvis. There are also several calcific fragments now identified over the region of the left kidney at the level of L2. These may represent calculus fragments from recent lithotripsy. Right-sided urinary tracts are unremarkable. Bowel gas pattern is unremarkable. IMPRESSION: There are several calcified fragments in the left upper abdomen at the level of L2, perhaps fragments in the upper urinary tracts. There also may be a small fragment in the region of the distal left ureter. Dictated by: Dictated on workstation # [id number]
--- NOTE | 2020-07-02 12:15 | OPERATIVE REPORT ---
DATE OF SERVICE: 07/02/2020 PREOPERATIVE DIAGNOSIS: Left distal ureteral stone. POSTOPERATIVE DIAGNOSIS: Left distal ureteral stone. OPERATIONS PERFORMED: Left ureteroscopy with stone lithotripsy and left ESWL. SURGEON: Pepe Ortiz MD. ANESTHESIA: General. COMPLICATIONS: None. DESCRIPTION OF PROCEDURE: Under satisfactory general anesthesia and the patient in the lithotomy position, genitalia were prepped and draped in the usual sterile fashion. Cystoscope was introduced under vision. The anterior urethra was normal. The prostate was not enlarged, but there was a significant median bar. This caused the displacement of the ureter upward and laterally. There was a clear efflux on both sides, but very sluggish on the left side. No foreign body, bladder tumor or stone visualized. Using the foroblique lens, I dilated the left ureteral orifice intramural portion to accommodate the semi-rigid ureteroscope, went up and visualized the stone, was good size stone. I went ahead and performed lithotripsy on it. I had to cristian the fragments proximally and one fragment went all the way into the kidney and I could see it into the lam, so I went ahead and removed the ureteroscope, emptied the bladder, removed the removed the ureteroscope. The patient was moved on to the ESWL table, the left renal stone fragment was localized. Shocks were delivered at kV of 6. Total of 3000 shocks completely fragmented the stone, which was not visualized anymore. The patient received 40 mg of Lasix, 30 mg of Toradol IV at the end of the procedure. He tolerated the procedure and anesthesia well and was sent to recovery room in a stable condition. Job ID: [id number] DocumentID: [id number] Dictated Date: 07/02/2020 08:59:28 Pediatric Sports Medicine Specialist Date: 07/02/2020 12:14:29 Dictated By: PEPE ORTIZ MD
== END 2020-07-02 11:05 | disposition home or self-care (01) ==
LOC: SDC 06:03
PROVIDERS: ATTEND Urology
DX: N20.1 Calculus of ureter (principal); R31.0 Gross hematuria; N40.0 Benign prostatic hyperplasia without lower urinary tract symptoms; I10 Essential (primary) hypertension; E78.5 Hyperlipidemia, unspecified; G62.9 Polyneuropathy, unspecified; K21.9 Gastro-esophageal reflux disease without esophagitis; E11.9 Type 2 diabetes mellitus without complications; E66.9 Obesity, unspecified; Z68.37 Body mass index [BMI] 37.0-37.9, adult; Z87.891 Personal history of nicotine dependence; Z86.711 Personal history of pulmonary embolism; Z88.5 Allergy status to narcotic agent; Z79.899 Other long term (current) drug therapy; Z79.84 Long term (current) use of oral hypoglycemic drugs; Z79.01 Long term (current) use of anticoagulants; Z11.2 Encounter for screening for other bacterial diseases
CPT/HCPCS: 74018; 76000; 82962; 87081

== ENCOUNTER → 2020-07-11 | Outpatient (CLI) | payer BC ==
[~2020-07-11] MED LIST changes: +PHEN-640 PO; +SULF1TAB35 PO; +TMSL.4C PO; +TRM50T PO
--- NOTE | 2020-07-11 10:11 | Diagnostic Imaging Report ---
INDICATION: 11 days postop left ureteral stone lithotripsy. Time of exam 900 a.m. Correlation made with prior radiograph from 07/02/2020. Previously noted calcific fragments at the level of L2 have largely cleared. There is vague residual density near this location which may represent minimal residual fragments. No new abnormality is seen. Right-sided urinary tracks are unremarkable. Bowel gas pattern is unremarkable. IMPRESSION: Significant improved appearance of abdomen since prior exam from 07/02/2020. There may be minimal residual calcific fragments in the left upper abdomen, as described. Dictated by: Dictated on workstation # [id number]
== END ==
LOC: RAD 08:51
PROVIDERS: ATTEND Urology
DX: Z09 Encounter for follow-up examination after completed treatment for conditions other than malignant neoplasm (principal); R93.5 Abnormal findings on diagnostic imaging of other abdominal regions, including retroperitoneum; Z87.442 Personal history of urinary calculi
CPT/HCPCS: 74018

== ENCOUNTER 2020-07-28 17:18 | Emergency (ER) | payer BC ==
[~2020-07-28] VITALS: Ht 187 cm; Wt 132.0 kg
[2020-07-28] MEDS ORDERED: LACTATED RINGERS 1,000 ML IV ONE (17:37)
[2020-07-28] MEDS ORDERED: ONDANSETRON 4 MG/2 ML (SDV) Z0FRAN IVP ONE (17:45)
[2020-07-28 18:05] LABS: BASOPHILS % (AUTO) 1 % (0-10); EOSINOPHILS % (AUTO) 1 % (0-10); HEMATOCRIT 52 % (40-54); HEMOGLOBIN 17.3 g/dL (13.3-17.7); LYMPHOCYTES # (AUTO) 1.5 10^3/uL (1.0-4.0); LYMPHOCYTES % (AUTO) 37 % (12-44); MEAN CORPUSCULAR HEMOGLOBIN 32 pg (25-34); MEAN CORPUSCULAR HGB CONC 34 g/dL (32-36); MEAN CORPUSCULAR VOLUME 95 fL (80-99); MEAN PLATELET VOLUME 10.4 fL (9.0-12.2); MONOCYTES # (AUTO) 0.5 10^3/uL (0.0-1.0); MONOCYTES % (AUTO) 12 % (0-12); NEUTROPHILS # (AUTO) 2.1 10^3/uL (1.8-7.8); NEUTROPHILS % (AUTO) 49 % (42-75); PLATELET COUNT 169 10^3/uL (130-400); WHITE BLOOD COUNT 4.1 10^3/uL (4.3-11.0)
--- NOTE | 2020-07-28 18:11 | ED General ---
General Chief Complaint: Dizziness/Syncope Stated Complaint: SYNCOPE;COVID + Nursing Triage Note: ARRIVED VIA EMS FROM [facility]RGENT [facility]ARE. PT PRESENTED THERE WITH CONGESTION, DIARRHEA, AND NAUSEA STARTING SAT. PT TESTED POSITIVE FOR COVID THERE TODAY. WHILE AMBULATING TO BATHROOM WHEN HE PASSED OUT THEN FELL. DENIES HITTING HIS HEAD ALTHOUGH STAFF STATES HE DID. PT WAS INC OF STOOL. DURING THIS EPISODE. PT COMPLAINS OF LEFT KNEE PAIN. DENIES HEAD/NECK PAIN. Nursing Sepsis Screen: No Definite Risk Source of Information: Patient Exam Limitations: No Limitations History of Present Illness Date Seen by Provider: Jul 28, 2020 Time Seen by Provider: 17:45 Initial Comments Patient is a 54yo male who presents to the ER with a complaint of syncopal episode as well as 3 days of nausea and diarrhea. He states he hasnt actually vomited. No reported fever. no sore throat. He has had nasal congestion and drainage, he thought he just had a sinus infection. He denies cough or shortness of breath. When he went to the clinic and got his COVID test today, he was walking to the bathroom and suddenly passed out. At that time he was incontinent of stool as well. Patient complains of some left knee pain as a result of his syncopal episode - the pain is to the lateral part of the posterior aspect. Also an abrasion to the top of his knee. He does not think he hit his head - he has no neck or head pain. Timing/Duration: 2-3 Days Severity: Moderate Allergies and Home Medications Allergies Coded Allergies: hydrocodone (Verified Adverse Reaction, Unknown, NAUSEA, 07/02/20) Home Medications Acetaminophen 325 Mg Tablet, 650 MG PO Q6H PRN for PAIN-MILD, (Reported) Atorvastatin Calcium 10 Mg Tablet, 10 MG PO HS, (Reported) Cetirizine HCl 10 Mg Tablet, 10 MG PO HS, (Reported) Empagliflozin 10 Mg Tablet, 10 MG PO DAILY, (Reported) Metformin HCl 1,000 Mg Tablet, 1,000 MG PO BID, (Reported) Ondansetron 8 Mg Tab.rapdis, 8 MG PO Q8H PRN for nausea and vomiting Prescribed by: DIANA SHERMAN on 07/28/20 6396 Phenazopyridine HCl 200 Mg Tablet, 1 TAB PO TID Prescribed by: CHERISE PATRICK on 07/02/20 1029 Pregabalin 75 Mg Capsule, 75 MG PO DAILY, (Reported) Propranolol HCl 60 Mg Tablet, 60 MG PO DAILY, (Reported) Sulfamethoxazole/Trimethoprim 1 Each Tablet, 1 EACH PO BID Prescribed by: CHERISE PATRICK on 07/02/20 1029 Tamsulosin HCl 0.4 Mg Cap, 0.4 MG PO DAILY Prescribed by: CHERISE PATRICK on 07/02/20 1029 Tramadol HCl 50 Mg Tablet, 1-2 TAB PO Q4H PRN for PAIN-SEVERE (8-10) Prescribed by: CHERISE PATRICK on 07/02/20 1029 Patient Home Medication List Home Medication List Reviewed: Yes Review of Systems Review of Systems Constitutional: malaise, weakness EENTM: nose congestion Respiratory: No cough, No dyspnea on exertion, No short of breath Cardiovascular: no symptoms reported Gastrointestinal: diarrhea, loss of appetite, nausea Genitourinary: no symptoms reported Musculoskeletal: joint pain (left knee); No neck pain Skin: other (abrasion left knee) All Other Systems Reviewed Negative Unless Noted: Yes Past Xijfwjg-Ckzljj-Uqzech Hx Patient Social History Alcohol Use: Occasionally Uses Alcohol Beverage of Choice: Beer Recreational Drug Use: No Smoking Status: Never a Smoker Type Used: Cigarettes Former Smoker, Quit: Sep 29, 1987 2nd Hand Smoke Exposure: No Recent Foreign Travel: No Contact w/Someone Who Travel: No Recent Infectious Disease Expo: No Recent Hopitalizations: No Immunizations Up To Date Tetanus Booster (TDap): Unknown Date of Influenza Vaccine: Jun 29, 2018 Seasonal Allergies Seasonal Allergies: No Past Medical History Surgeries: Yes (Right knee tendon surgery) Orthopedic Respiratory: Yes Pulmonary Embolism Currently Using CPAP: No Currently Using BIPAP: No Cardiac: Yes High Cholesterol Neurological: Yes Neuropathy Reproductive Disorders: No Genitourinary: Yes Kidney Stones Gastrointestinal: No Gastroesophageal Reflux Musculoskeletal: No Endocrine: Yes Diabetes, Non-Insulin dep HEENT: No Cancer: No Psychosocial: No Integumentary: No Blood Disorders: No Adverse Reaction/Blood Tranf: No Family Medical History Diabetes mellitus 19 FATHER G8 SISTER Heart Disease, CAD Under 55 Years Old Physical Exam Vital Signs Vital Signs - First Documented 07/28/20 07/28/20 17:20 20:45 Temp 36.8 Pulse 69 Resp 16 B/P (MAP) 120/90 (100) Pulse Ox 99 O2 Delivery Room Air Capillary Refill : Less Than 3 Seconds Height, Weight, BMI Height: 6'2.00" Weight: 286lbs. 0.0oz. 129.372948ho; 37.00 BMI Method:Stated General Appearance: No Apparent Distress, WD/WN Eyes: Bilateral Eye Normal Inspection, Bilateral Eye PERRL, Bilateral Eye EOMI HEENT: PERRL/EOMI, Pharynx Normal Neck: Full Range of Motion, Other (paraspinos muscle tendereness to the right mid cervical spine) Respiratory: Chest Non Tender, Lungs Clear, Normal Breath Sounds, No Accessory Muscle Use, No Respiratory Distress Cardiovascular: Regular Rate, Rhythm, No Gallop, Normal Peripheral Pulses Gastrointestinal: Normal Bowel Sounds, Non Tender, Soft Extremity: Normal Capillary Refill, Normal Inspection, Normal Range of Motion, Other (tenderness in popliteal fossa lateral left knee) Neurologic/Psychiatric: Alert, Oriented x3, No Motor/Sensory Deficits, Normal Mood/Affect, food trades assistants II-XII Norm as Tested Skin: Normal Color, Warm/Dry, Other (abrasion anterior left knee, no active bleeding) Progress/Results/Core Measures Suspected Sepsis Recent Fever Within 48 Hours: No Infection Criteria Present: None New/Unexplained Altered Menta: No Sepsis Screen: No Definite Risk SIRS Temperature: Pulse: 69 Respiratory Rate: 16 Laboratory Tests 07/28/20 17:30: White Blood Count 4.1L Blood Pressure 120 /90 Mean: 100 Laboratory Tests 07/28/20 17:30: Creatinine 1.18, Platelet Count 169, Total Bilirubin 0.6 Results/Orders Lab Results My Orders Medications Given in ED Vital Signs/I&O Capillary Refill : Less Than 3 Seconds Blood Pressure Mean: 100 Progress Note : Time: 18:14 Progress Note 54yo male with COVID and GI upset. HAd syncopal episode and incontinence today. Here for left knee pain and the syncope related to being incontinent of stool. PAtient actually looks dry - will give IV fluids and zofran for nausea and check basic laboratory studies. after IV fluids will check orthostatic vital signs. Departure Impression Primary Impression: COVID-19 Additional Impression: Gastroenteritis due to COVID-19 virus Disposition: HOME, SELF-CARE Condition: Stable Departure-Patient Inst. Decision time for Depature: 19:25 Referrals: JANETTE GALEANO DO (PCP/Family) Primary Care Physician Patient Instructions: Viral Gastroenteritis, Adult (DC) Add. Discharge Instructions: Take the Zofran (nausea medication) every 8 hours as needed. Please drink plenty of fluids to stay well hydrated. Follow up with your family All discharge instructions reviewed with patient and/or family. Voiced understanding. Scripts Ondansetron (Ondansetron Odt) 8 Mg Tab.rapdis 8 MG PO Q8H PRN for nausea and vomiting, #10 TAB Prov: DIANA SHERMAN MD 07/28/20 DIANA SHERMAN MD Jul 28, 2020 18:11
[2020-07-28 18:13] LABS: ALBUMIN 4.3 GM/DL (3.2-4.5); CHLORIDE 99 MMOL/L (98-107); POTASSIUM 4.5 MMOL/L (3.6-5.0); SODIUM 137 MMOL/L (135-145)
[2020-07-28 18:14] LABS: CALCIUM 8.9 MG/DL (8.5-10.1)
[2020-07-28 18:15] LABS: GLUCOSE 195 MG/DL (70-105)
[2020-07-28 18:16] LABS: TOTAL PROTEIN 8.2 GM/DL (6.4-8.2)
[2020-07-28 18:17] LABS: BILIRUBIN,TOTAL 0.6 MG/DL (0.1-1.0); CARBON DIOXIDE 28 MMOL/L (21-32)
[2020-07-28 18:19] LABS: ALKALINE PHOSPHATASE 80 U/L (40-136); CREATININE SERUM 1.18 MG/DL (0.60-1.30); GFR ESTIMATED > 60
[2020-07-28 18:20] LABS: BUN/CREATININE RATIO 13
[2020-07-28 18:22] LABS: ALANINE AMINOTRANSFERASE 46 U/L (0-55)
[2020-07-28] MEDS ORDERED: ONDA8TAB13 PO (18:36)
[2020-07-28 18:44] VITALS: BP_SYST 112; BP_SYST 131; BP_SYST 133; BP_DIAS 78; BP_DIAS 87
--- NOTE | 2020-07-28 18:46 | NUR ---
PT STATES HE FEELS BETTER.
--- NOTE | 2020-07-28 18:55 | NUR ---
REPORT GIVEN TO JOHN
--- NOTE | 2020-07-28 19:00 | NUR ---
Recieved report from [facility] Last to assume care of pt at this time.
[2020-07-28] MEDS ORDERED: LACTATED RINGERS 1,000 ML IV SCH (19:30)
[2020-07-28] MEDS ORDERED: RX-ONDANSETRON 4 MG ODT (ZOFRAN) PPK #4 PO STA (20:35)
[2020-07-28] MEDS ORDERED: RX-ONDANSETRON 4 MG ODT (ZOFRAN) PPK #4 ONE (20:36)
[2020-07-28 20:45] VITALS: BP 136/91
== END 2020-07-28 20:45 | disposition home or self-care (01) ==
LOC: EDUNIT# 17:18 → ER 17:20
DX: U07.1 COVID-19 (principal); A08.4 Viral intestinal infection, unspecified; E11.9 Type 2 diabetes mellitus without complications; E78.00 Pure hypercholesterolemia, unspecified; Z83.3 Family history of diabetes mellitus; Z82.49 Family history of ischemic heart disease and other diseases of the circulatory system; Z87.891 Personal history of nicotine dependence; Z88.5 Allergy status to narcotic agent; Z79.84 Long term (current) use of oral hypoglycemic drugs
CPT/HCPCS: 36415; 80053; 85025

== ENCOUNTER → 2021-01-09 | Outpatient (CLI) | payer BC ==
[~2021-01-09] MED LIST changes: +ONDA8TAB13 PO
--- NOTE | 2021-01-09 11:57 | Diagnostic Imaging Report ---
INDICATION: Nephrolithiasis KUB 11:11 AM Bowel gas pattern is normal. There are no appreciable calculi. Osseous structures are unremarkable. IMPRESSION: Unremarkable abdomen Dictated by: Dictated on workstation # [id number]
== END ==
LOC: RAD 10:50
PROVIDERS: ATTEND Urology
DX: N20.0 Calculus of kidney (principal)
CPT/HCPCS: 74018

== ENCOUNTER → 2021-03-09 | Outpatient (CLI) | payer BC ==
--- NOTE | 2021-03-09 17:01 | Diagnostic Imaging Report ---
INDICATION: Bowel distention, constipation, and anorexia. FINDINGS: A supine view of the abdomen demonstrates increased stool in the ascending and transverse colon. The small bowel appears normal. The lung bases are clear. IMPRESSION: There is mildly increased stool in the colon. Dictated by: Dictated on workstation # [id number]
== END ==
LOC: RAD 16:40
PROVIDERS: ATTEND Family Medicine
DX: K59.00 Constipation, unspecified (principal); R14.0 Abdominal distension (gaseous); R63.0 Anorexia
CPT/HCPCS: 74019